=== PATIENT | male | born 1955 | race Caucasian/White ===

== ENCOUNTER 2020-01-14 11:25 | Emergency (ER) | payer MEDICARE, SELFPAY ==
--- NOTE | 2020-01-14 12:15 | HMH.EDUTC ---
[facility] [place] Disposition Clinical Impression: Viral syndrome Sinusitis Qualifiers: Sinusitis location: unspecified location Chronicity: acute Recurrence: non-recurrent Qualified Code(s): J01.90 - Acute sinusitis, unspecified Disposition: Home, Self-Care Condition on Discharge: Good Instructions: Preventing the Spread of Coronavirus Discharge Instructions Additional Instructions: Drink plenty of fluids. Take tylenol or ibuprofen for pain or fever. Take the medications as directed. Follow up with your regular doctor. GO TO THE ER FOR ANY WORSENING SYMPTOMS FOLLOW THE DIRECTIONS ON THE COVID-19 HAND OUT THAT WE GAVE YOU REGARDING SELF-ISOLATION UNTIL YOU KNOW YOUR COVID-19 RESULTS YOU HAVE SYMPTOMS THAT ARE WORRISOME FOR COVID-19. YOU NEED TO BE TESTED SO YOU WOULD KNOW AND BE ABLE TO DECREASE SPREADING OF THE DISEASE MUCH POSSIBLE. IN THE ABSENCE OF BEING ALLOWED TO TEST YOU, I WOULD RECOMMEND THAT YOU SELF-QUARANTINE FOR 14 DAYS Prescriptions: Azithromycin [Z-Dhruv 250mg Tab*] 250 mg PO UD DOSE PK #6 tab Transmission Status: Received by [id number] Referrals: Richardson Milligan MD [Primary Care Provider] - Time of Disposition: 12:36 Medical Decision Making - Medical Records Medical records reviewed: No: I reviewed the patient's medical records. - Rolan Inquiry Pt receiving controlled substance: No Vital Signs: 01/14/20 12:31 01/14/20 12:38 Temperature 99.5 F 99.5 F Temperature Source Oral Pulse Rate 99 H Pulse Rate [Right Brachial] 99 H Respiratory Rate 17 17 Blood Pressure 118/69 Blood Pressure [Right Arm] 118/69 Blood Pressure Mean [Right Arm] 85 Blood Pressure Source [Right Arm] Automatic Cuff Blood Pressure Position [Right Arm] Sitting 02 Sat by Pulse Oximetry 93 L Oxygen Delivery Method Room Air Medical Decision Narrative: I explained to him that he has the symptoms of COVID-19 and it would be good to test him incase he gets worse. But he adamantly refuses. He is aware of the risks of not being tested (spreading covid, worsening sickness then having to wait for covid results at a later time, etc) [facility] [place] HPI - General Stated complaint: lightheaded,congested,drainage Time Seen by Provider: 01/14/20 12:15 - History of Present Illness Provider Complaint: He c/o 3 days of worsening body aches, sinus drainage, dry cough, nausea, and poor appetite. He states that he feels bad also. He denies any known exposure to COVID-19. He adamantly refuses any covid testing or influenza testing. - Related Data Home Medications Medication Instructions Recorded Confirmed Aspirin [Aspirin 81mg chewable 81 mg PO DAILY 01/14/20 01/14/20 tab] Lisinopril/Hydrochlorothiazide 1 tab PO DAILY 01/14/20 01/14/20 [Lisinopril-Hctz 20-25 mg Tab*] Lovastatin 20 mg PO DAILY 01/14/20 01/14/20 Metformin HCl [Metformin 1000mg 1,000 mg PO BID 01/14/20 01/14/20 Tablets] Previous Rx's Medication Instructions Recorded Azithromycin [Z-Dhruv 250mg Tab*] 250 mg PO UD DOSE PK #6 tab 01/14/20 Allergies Allergy/AdvReac Type Severity Reaction Status Date / Time No Known Allergies Allergy Verified 01/14/20 12:34 [facility] History - Hepatitis A Screen Attestation statement:: This patient has been screened for Hepatitis A risk factors. ROS Obtained: Yes All systems reviewed & no additional complaints - Constitutional Constitutional: Reports chills, Denies fever(s), Reports poor appetite, Reports malaise - Eyes Eyes: Denies eye discharge - ENT Ears, Nose, Mouth, and Throat: Reports as per HPI - Cardiovascular Cardiovascular: Denies chest pain - Respiratory Respiratory: Yes chest congestion, Yes cough Physical Exam - General General appearance: alert, in no apparent distress - Head Head exam: atraumatic, normocephalic, normal inspection - Eye Eye exam: Present: normal appearance, PERRL, EOMI - ENT ENT exam: Present: normal e
[2020-01-14 12:31] VITALS: BP 118/69; PULSE 99; RESP 17; TEMP 37.5; O2SAT 93; BMI 25.0
[2020-01-14 12:38] VITALS: BP 118/69; PULSE 99; RESP 17; TEMP 37.5; O2SAT 93
== END 2020-01-14 12:47 | disposition home or self-care (01) ==
PROVIDERS: Emergency Provider Nurse Practitioner Family; PCP Internal Medicine Adolescent Medicine
DX: B34.9 Viral infection, unspecified (principal); J01.90 Acute sinusitis, unspecified
CPT/HCPCS: G0463; 99201

== ENCOUNTER → 2020-01-23 11:28 | Outpatient (CLI) | payer MEDICARE, SELFPAY ==
--- NOTE | 2020-01-23 11:42 | XR_ITS ---
PROCEDURE: XR CHEST 2V CLINICAL HISTORY: ACUTE BRONCHOPNEUMONIA COMPARISON: No exams were available for comparison FINDINGS: The cardiomediastinal silhouette and pulmonary vascularity are within normal limits. Pneumonia is present in the mid aspect of the right lung which may be in the anterior segment of the right upper lobe. There is pneumonia also in the left mid and lower lung consistent with left lower lobe pneumonia. No effusions are evident. There is mild wedging of L1 which may be chronic. IMPRESSION: Bilateral pneumonia Dictated by: Travis Tabares MD 01/23/2020 12:19 Travis Tabares MD in [place] 01/23/2020 12:19
[2020-01-23 11:53] LABS: Basophils % 0.4 % (0.1-2.0); Eosinophils # 0.1 K/mm3 (0.0-0.4); Eosinophils % 0.7 % (0.1-12.0); Hematocrit 46.2 % (42.0-52.0); Hemoglobin 15.3 g/dL (14.1-18.0); Lymphocytes # 1.6 K/mm3 (0.7-4.5); Lymphocytes % 15.2 % (10-50); Mean Corpuscular HGB Conc 33.2 g/dL (31.8-35.4); Mean Corpuscular Hemoglobin 26.8 pg (27.0-31.2); Mean Corpuscular Volume 80.7 fl (80-94); Mean Platelet Volume 7.5 fl (7.4-10.4); Monocytes # 0.4 K/mm3 (0.1-1.0); Monocytes % 4.3 % (1.7-9.3); Neutrophils # 8.1 K/mm3 (1.8-7.8); Neutrophils % 79.4 % (37.0-80.0); Platelet Count 514 K/mm3 (142-424); Red Blood Count 5.72 M/mm3 (4.60-6.20); Red Cell Distribution Width 13.1 % (11.5-17.5); White Blood Count 10.2 K/mm3 (4.8-10.8)
[2020-01-23 12:22] LABS: Alanine Aminotransferase 59 U/L (12-78); Albumin Level 4.3 g/dl (3.5-5.0); Albumin/Globulin Ratio 1.1 (1.1-1.8); Alkaline Phosphatase 91 U/L (38-126); Anion Gap 18.1 mEq/L (5-15); Aspartate Amino Transferase 42 U/L (17-59); Bilirubin,Total 0.9 mg/dl (0.2-1.3); Blood Urea Nitrogen 29 mg/dl (9-20); Calcium 9.6 mg/dl (8.4-10.2); Carbon Dioxide 26 mmol/L (22.0-30.0); Chloride 97 mmol/L (98-107); Estimated Glomerular Filt Rate 51 ml/min (>60); GFR (African American) 62 ML/MIN (>60); Glucose 202 mg/dl (74-100); Potassium 5.1 mmoL/L (3.5-5.1); Sodium 136 mmol/L (136-145); Total Protein,Serum 8.3 g/dl (6.3-8.2)
[2020-01-23 15:00] LABS: Coronavirus 19 IgG Antibody Positive (Negative)
[2020-01-23 15:01] LABS: Coronavirus 19 IgM Antibody Positive (Negative)
== END ==
PROVIDERS: Visit Provider Internal Medicine Adolescent Medicine
DX: Z03.818 Encounter for observation for suspected exposure to other biological agents ruled out (principal); J18.0 Bronchopneumonia, unspecified organism; R05 Cough
CPT/HCPCS: 36415; 71046; 80053; 85025; 86328

== ENCOUNTER → 2020-08-06 08:44 | Outpatient (CLI) | payer MEDICARE, SELFPAY ==
[2020-08-06 09:52] LABS: Basophils # 0.1 K/mm3 (0-0.2); Basophils % 0.8 % (0.1-2.0); Eosinophils # 0.1 K/mm3 (0.0-0.4); Eosinophils % 1.7 % (0.1-12.0); Hematocrit 43.4 % (42.0-52.0); Hemoglobin 13.2 g/dL (14.1-18.0); Lymphocytes # 2.4 K/mm3 (0.7-4.5); Mean Corpuscular HGB Conc 30.5 g/dL (31.8-35.4); Mean Corpuscular Hemoglobin 25.2 pg (27.0-31.2); Mean Corpuscular Volume 82.8 fl (80-94); Mean Platelet Volume 7.3 fl (7.4-10.4); Monocytes # 0.4 K/mm3 (0.1-1.0); Monocytes % 5.4 % (1.7-9.3); Neutrophils # 4.3 K/mm3 (1.8-7.8); Neutrophils % 59.1 % (37.0-80.0); Platelet Count 206 K/mm3 (142-424); Red Blood Count 5.24 M/mm3 (4.60-6.20); Red Cell Distribution Width 13.8 % (11.5-17.5); White Blood Count 7.2 K/mm3 (4.8-10.8)
[2020-08-06 10:05] LABS: Alanine Aminotransferase 63 U/L (12-78); Albumin/Globulin Ratio 1.8 (1.1-1.8); Alkaline Phosphatase 57 U/L (38-126); Anion Gap 15.2 mEq/L (5-15); Aspartate Amino Transferase 46 U/L (17-59); Bilirubin,Total 0.6 mg/dl (0.2-1.3); Blood Urea Nitrogen 18 mg/dl (9-20); Calcium 10.4 mg/dl (8.4-10.2); Carbon Dioxide 25 mmol/L (22.0-30.0); Chloride 105 mmol/L (98-107); Chol/HDL Ratio 3.6 (1-3.5); Cholesterol 160 mg/dl (140-200); Estimated Glomerular Filt Rate 61 ml/min (>60); GFR (African American) 74 ML/MIN (>60); Globulin 2.8 g/dL (1.3-3.2); Glucose 173 mg/dl (74-100); HDL Cholesterol 44 mg/dl (40-60); Potassium 5.2 mmoL/L (3.5-5.1); Sodium 140 mmol/L (136-145); Total Protein,Serum 7.8 g/dl (6.3-8.2); Triglycerides 184 mg/dl (30-150); VLDL Cholesterol 37 mg/dL (0-40)
[2020-08-06 10:16] LABS: Direct LDL Cholesterol 85.87 mg/dL (100-129)
[2020-08-06 18:46] LABS: Hemoglobin A1C 8.4 % (4.0-6.0)
== END ==
PROVIDERS: Visit Provider Internal Medicine Adolescent Medicine
DX: E11.9 Type 2 diabetes mellitus without complications (principal); E78.5 Hyperlipidemia, unspecified; Z79.84 Long term (current) use of oral hypoglycemic drugs
CPT/HCPCS: 36415; 80053; 80061; 83036; 85025

== ENCOUNTER → 2020-08-27 14:36 | Outpatient (CLI) | payer MEDICARE, SELFPAY ==
[2020-08-27 17:10] VITALS: BMI 30.4
== END ==
PROVIDERS: PCP Internal Medicine Adolescent Medicine; Visit Provider Internal Medicine Adolescent Medicine
DX: Z71.3 Dietary counseling and surveillance (principal); E11.9 Type 2 diabetes mellitus without complications
CPT/HCPCS: 97802

== ENCOUNTER → 2020-12-13 08:00 | Outpatient (CLI) | payer MEDICARE, SELFPAY ==
[2020-12-13 08:19] LABS: Basophils # 0.1 K/mm3 (0-0.2); Eosinophils # 0.2 K/mm3 (0.0-0.4); Hematocrit 48.3 % (42.0-52.0); Hemoglobin 14.7 g/dL (14.1-18.0); Lymphocytes # 2.6 K/mm3 (0.7-4.5); Mean Corpuscular HGB Conc 30.4 g/dL (31.8-35.4); Mean Corpuscular Hemoglobin 25.9 pg (27.0-31.2); Mean Corpuscular Volume 85.1 fl (80-94); Mean Platelet Volume 7.7 fl (7.4-10.4); Monocytes # 0.3 K/mm3 (0.1-1.0); Monocytes % 4.3 % (1.7-9.3); Neutrophils # 4.6 K/mm3 (1.8-7.8); Neutrophils % 58.8 % (37.0-80.0); Platelet Count 231 K/mm3 (142-424); Red Blood Count 5.68 M/mm3 (4.60-6.20); Red Cell Distribution Width 13.7 % (11.5-17.5); White Blood Count 7.8 K/mm3 (4.8-10.8)
[2020-12-13 08:50] LABS: Hemoglobin A1C 6.7 % (4.0-6.0)
[2020-12-13 08:52] LABS: Alanine Aminotransferase 47 U/L (12-78); Albumin Level 4.7 g/dl (3.5-5.0); Albumin/Globulin Ratio 1.5 (1.1-1.8); Alkaline Phosphatase 47 U/L (38-126); Aspartate Amino Transferase 40 U/L (17-59); Bilirubin,Total 0.5 mg/dl (0.2-1.3); Blood Urea Nitrogen 23 mg/dl (9-20); Calcium 9.9 mg/dl (8.4-10.2); Carbon Dioxide 28 mmol/L (22.0-30.0); Chloride 103 mmol/L (98-107); Chol/HDL Ratio 3.2 (1-3.5); Cholesterol 158 mg/dl (140-200); Estimated Glomerular Filt Rate 55 ml/min (>60); GFR (African American) 67 ML/MIN (>60); Globulin 3.2 g/dL (1.3-3.2); Glucose 143 mg/dl (74-100); HDL Cholesterol 49 mg/dl (40-60); Sodium 143 mmol/L (136-145); Total Protein,Serum 7.9 g/dl (6.3-8.2); Triglycerides 167 mg/dl (30-150); VLDL Cholesterol 33 mg/dL (0-40)
[2020-12-13 09:02] LABS: Direct LDL Cholesterol 79.44 mg/dL (100-129)
== END ==
PROVIDERS: Visit Provider Internal Medicine Adolescent Medicine
DX: E11.9 Type 2 diabetes mellitus without complications (principal); E78.5 Hyperlipidemia, unspecified; Z79.84 Long term (current) use of oral hypoglycemic drugs
CPT/HCPCS: 36415; 80053; 80061; 83036; 85025